=== PATIENT | male | born 2000 | race Two or more races ===

== ENCOUNTER → 2023-03-18 | Outpatient (CLI) | payer OTHER | LOC: M PLAIMG 08:17 | PROVIDERS: ATTEND Otolaryngology | DX: R13.19 Other dysphagia (principal) ==

== ENCOUNTER → 2023-12-23 | Outpatient (REF) ==
[2023-12-23 15:28] LABS: APPEARANCE, URINE CLEAR (CLEAR); BACTERIA, URINE AUTO NEGATIVE (NEGATIVE); BILIRUBIN, URINE AUTO NEGATIVE (NEGATIVE); BLOOD, URINE BLOOD NEGATIVE (NEGATIVE); COLOR, URINE YELLOW (YELLOW); GLUCOSE, URINE (UA) AUTO NEGATIVE (NEGATIVE); KETONE, URINE AUTO NEGATIVE (NEGATIVE); LEUKOCYTE ESTERASE, URINE AUTO NEGATIVE (NEGATIVE); MUCUS, URINE SMALL (NEGATIVE); NITRITE, URINE AUTO NEGATIVE (NEGATIVE); PROTEIN, URINE AUTO NEGATIVE (NEGATIVE); RBC, URINE AUTO 0 /HPF (0-3); SPECIFIC GRAVITY URINE AUTO 1.025 (1.002-1.035); SQUAMOUS EPITHELIAL CELL UR AU 0 /HPF (0-6); UROBILINOGEN, URINE AUTO 0.2 mg/dL (0.0-2.0); WBC, URINE AUTO 0 /HPF (0-3)
== END ==
LOC: M PLAIMG 13:20
PROVIDERS: ATTEND Nurse Practitioner Family
DX: M25.371 Other instability, right ankle (principal); R05.1 Acute cough; R30.9 Painful micturition, unspecified